=== PATIENT | female | born 1995 ===

== ENCOUNTER 2022-09-27 07:26 | Outpatient (CLI) | payer OTHER ==
--- NOTE | 2022-09-27 09:24 | MRI Report ---
PROCEDURE: SHOULDER WO - RT INDICATIONS: SHOULDER PAIN TECHNIQUE: Noncontrast oblique coronal T2 fast spin echo with fat saturation, oblique sagittal T1 spin echo and T2 fast spin echo with fat saturation, axial T1 spin echo and T2 fast spin echo with fat saturation t hrough the shoulder. COMPARISON: None. FINDINGS: Image quality: Excellent. Rotator cuff: Mild T2 signal elevation throughout the supraspinatus and infraspinatus tendons at the humeral insertion sites extending the muscular tendinous junctions, indicating tendinopathy. Superimp osed low-grade partial-thickness intrasubstance tearing of the mid and anterior infraspinatus tendon at the humeral insertion site. Low-grade partial-thickness articular surface and intrasubstance teari ng of the upper subscapularis tendon at the humeral insertion site extending the muscular tendinous j unction. Teres minor is intact. No rotator cuff atrophy. Bones and bursae: No bone marrow contusions or fractures. Mild acromioclavicular joint degeneration. The acromion demonstrates conventional anatomy, without an os acromiale. No pathologic subacromial /subdeltoid bursal fluid is present. Capsule and soft tissues: In the absence of intra-articular contrast, the labrum and glenohumeral li gaments appear intact. The long head of the biceps tendon demonstrates normal location and morpholog y. The rotator interval appears normal, without fibrosis. The coracohumeral ligament is normal in t hickness. IMPRESSION: 1. Supraspinatus and infraspinatus tendinopathy. Low-grade tears of the rotator cuff as above. No ful l-thickness rotator cuff tear. 2. Acromioclavicular joint osteoarthritis. Reviewed by: Juan M White MD on 09/27/2022 9:23 AM PST Approved by: Juan M White MD on 09/27/2022 9:23 AM PST Station ID: [id number]
== END 2022-09-27 07:27 | disposition home or self-care (01) ==
LOC: DI 07:26
DX: M75.111 Incomplete rotator cuff tear or rupture of right shoulder, not specified as traumatic (principal); M67.813 Other specified disorders of tendon, right shoulder; M19.011 Primary osteoarthritis, right shoulder

== ENCOUNTER 2022-12-21 11:38 | Emergency (ER) | payer OTHER ==
--- NOTE | 2022-12-21 13:08 | ED Physician Documentation ---
PD HPI FEMALE - Stated complaint Stated Complaint: FEMALE - Chief complaint Chief Complaint: Abd Pain - History obtained from History obtained from: Patient - History of Present Illness Timing - duration: Days Timing - details: Gradual onset, Still present Associated symptoms: Vaginal pain, Vaginal discharge, Genital sore/lesion. No: Fever, Back pain, Urinary frequency, Hematuria Contributing factors: No: , Exposed to STD [employer] History: G (0), P (0) Recently seen: Clinic (seen 3 days ago and had testing for BV and stds. she states tests positive for bv. on flagyl the past 3 days with onset nausea and abd cramping. Had been given oral diflucan and yeast component seems better per pt. Having marked, worsening spots of tenderness/pain for few days.) Review of Systems Constitutional: denies: Fever, Chills GI: reports: Abdominal Pain, Nausea. denies: Abdominal Swelling, Vomiting, Diarrhea : reports: Dysuria, Discharge (thicker white clumpy initially but has improved with antifungal.). denies: Frequency, Hematuria Neurologic: denies: Generalized weakness, Near syncope PD PAST MEDICAL HISTORY - Past Medical History Cardiovascular: None Respiratory: None Endocrine/Autoimmune: None - Present Medications Home Medications: Ambulatory Orders Medication Instructions Recorded Confirmed Clindamycin Phosphate [Cleocin] 5 gm VG DAILY 8 Days #40 gm 12/21/22 HYDROcod/ACETAM 5/325 [[place] 5/325] 1 ea PO Q6H PRN #12 tablet 12/21/22 Lidocaine Ointment 5% [Xylocaine 1 applic TOP QID PRN #35.44 gm 12/21/22 Ointment 5%] Ondansetron Odt [Zofran] 4 mg TL Q6H PRN #15 tablet 12/21/22 valACYclovir [Valtrex] 500 mg PO BID #10 tablet 12/21/22 - Allergies Allergies/Adverse Reactions: Allergies Allergy/AdvReac Type Severity Reaction Status Date / Time No Known Drug Allergies Allergy Verified 12/21/22 11:50 PD ED PE NORMAL - Vitals Vital signs reviewed: Yes - General General: Alert and oriented X 3, Well developed/nourished, Other (appears uncomfortable due to vaginal lesions and burning feeling. improves with topical lidocaine applied during pelvic. ) - Cardiac Cardiac: RRR, No murmur - Respiratory Respiratory: Clear bilaterally - Abdomen Abdomen: Soft, Non distended, Other (mild tender epigastric area without guarding. ) - Female Female : [employer] present, Other (inner labia and introitus of the vagina with discrete 2-3 mm ulcerative lesions, very tender, without vesicles. the vaginal vault with minimal clear discharge. no endocervical discharge. ) - Back Back: No CVA TTP - Derm Derm: Normal color, Warm and dry Results - Vitals Vitals: Oxygen O2 Source Room air - Labs Labs: Laboratory Tests 12/21/22 13:22 Urine Color DK. ORANGE Urine Clarity CLEAR Urine pH 5.5 Ur Specific [place] 1.020 Urine Protein Urine Glucose (UA) Urine Ketones TRACE Urine Occult Blood Urine Nitrite Urine Bilirubin NEGATIVE Urine Urobilinogen Ur Leukocyte Esterase Urine RBC 0-5 Urine WBC >25 H Ur Squamous Epith Cells MOD Squamous H Urine Bacteria Few Ur Microscopic Review INDICATED Urine Culture Comments NOT INDICATED Urine HCG, Qual NEGATIVE PD Medical Decision Making - ED course Complexity details: reviewed old records (testing for HSV has not returned from reference lab as yet. ), considered differential (vaginal vault with minimal clear discharge. does not appear yeast-like. has discrete ulcerative very tender lesions inner labial and introitus. no vesicles. consider erosive lesions from irritation/infection of bv, versus also having new onset hsv. sudpicious for hSV. ), d/w patient Departure - Departure Disposition: 01 Home, Self Care Clinical Impression: Acute vaginitis, Vulvovaginitis Condition: Stable Record reviewed to determine appropriate education?: Yes Prescriptions: Clindamycin Phosphate [Cleocin] 5 gm VG DAILY 8 Days #40 gm HYDROcod/ACETAM 5/325 [[place] 5/325] 1 ea PO Q6H PRN #12 tablet PRN Reason: Pain valACYclovir [Valtrex] 500 mg PO BID #10 tablet Lidocaine Ointment 5% [Xylocaine Ointment 5%] 1 applic TOP QID PRN #35.44 gm PRN Reason: Pain Ondansetron Odt [Zofran] 4 mg TL Q6H PRN #15 tablet PRN Reason: Nausea / Vomiting Comments: There are ulcerative lesions on the inner labia and the introitus of the vaginal vault. You can get ulcerations like this from yeast infection and bacterial vaginitis and so they may have just created areas of deeper irritation. Its also the presentation possibly for herpetic lesions as well. We did do a viral PCR swab of the areas and that should result in the next 1 to 2 days commonly to look for herpes 1 and 2. At this point there does not appear to be a vaginal yeast infection still so that likely is cleared. You can continue with the metronidazole and take it with ondansetron if needed for nausea. Be sure to take it with food as well. Given the persistence of symptoms with the metronidazole, I would suggest adding clindamycin vaginally which is also effective for BV and does not have side effects in that regard. If the Metrinidazole continues to cause nausea, you could stop it and just use the vaginal dlindamycin. I would suggest also starting valacyclovir twice daily for 5 days per chance a herpetic viral component. We will try to call you with the results of that. Certainly any positives we call. The results will also be available as soon as they result on your patient portal and you can look up the results yourself as well. Meanwhile continue with Tylenol if needed for pains or hydrocodone/acetaminophen if needed for worse pain. Also use topical lidocaine ointment on the sores to help with pain as well. I sent your prescriptions to the [facility] pharmacy in [facility]. I am prescribing a short course of narcotic pain medication for you. These are potentially dangerous and addictive medications that should be used carefully. These medications may constipate you. Take an [id number] stool softener such as docusate twice daily with plenty of water while taking these medications. If you go 24 hours without a bowel movement, take [id number] MiraLAX, per package instructions. Do not drink or drive while taking these medications. If you received narcotic or sedating medications while in the emergency department do not drive for 24 hours. Store this medication in a safe, secure place and out of reach of children. It is a violation of federal law to give or sell this medication to another person or to use in a manner other than prescribed. The ED will not refill narcotic prescriptions, including prescriptions lost or stolen. You can dispose of unwanted medications at the [facility]'s office or at several pharmacies such as [facility]. Forms: Activity restrictions Discharge Date/Time: 12/21/22 14:40
[2022-12-21 13:27] LABS: BILIRUBIN,URINE NEGATIVE (NEGATIVE); KETONES,URINE (UA) TRACE mg/dL (NEGATIVE); PH,URINE 5.5 PH (5.0-7.5)
[2022-12-21 13:30] LABS: CLARITY,URINE CLEAR (CLEAR); HCG UR QUAL NEGATIVE
[2022-12-21] MEDS ORDERED: IBUPROFEN 600 MG TABLET PO STA (13:32)
[2022-12-21] MEDS ORDERED: LIDOCAINE OINTMENT 5% 35.44 GM TUBE TOP STA (13:35)
[2022-12-21] MEDS ORDERED: ACETAMINOPHEN 325 MG TABLET PO STA (13:36)
[2022-12-21 13:40] LABS: BACTERIA,URINE Few /HPF (None Seen); RBC,URINE 0-5 /HPF (0-5); SQUAMOUS EPITHELIAL CELL,UR MOD Squamous (<= Few); WBC,URINE >25 /HPF (0-5)
[2022-12-21] MEDS ORDERED: valACYclovir 500 MG TABLET PO STA (14:15)
[2022-12-21 14:23] VITALS: BP 148/78
[2022-12-24 16:08] LABS: HSV-1 DNA Positive (Negative); HSV-2 DNA Negative (Negative)
== END 2022-12-21 14:40 | disposition home or self-care (01) ==
LOC: ED 11:38
DX: N76.0 Acute vaginitis (principal)
CPT/HCPCS: 81001; 81025; 87529; 99283; A9270; 81003; 87086